=== PATIENT | female | born 1975 | race Caucasian/White ===

== ENCOUNTER → 2024-03-02 | Emergency (ER) | payer BC ==
[~2024-03-02] VITALS: Ht 182.9 cm; Wt 84.0 kg
[2024-03-02 22:25] VITALS: BP 119/73; RESP 16; TEMP 99.5; O2SAT 98
[2024-03-02 22:26] VITALS: PULSE 89
== END ==
LOC: ER 22:14
DX: R05.9 Cough, unspecified (principal)
CPT/HCPCS: 99281